=== PATIENT | female | born 1960 | race Hispanic/Latino ===

== ENCOUNTER 2017-03-13 09:34 | Day surgery (SDC) | payer OTHER ==
[2016-05-27 10:29] VITALS: BMI 32.3
[2017-03-13] MEDS ORDERED: Lidocaine 2% Inj (20ml) ONE (12:48)
[2017-03-13] MEDS ORDERED: Propofol 10 mg/ml Inj (20 ML) ONE ×3 (12:48→13:31)
[2017-03-13] MEDS ORDERED: Sodium Chloride 0.9% 1,000 ML IV SCH (14:00)
[2017-03-13 14:06] VITALS: O2SAT 98
[2017-03-13 14:29] VITALS: RESP 16
[2017-03-13 14:48] VITALS: BP 113/64; PULSE 80; TEMP 97.9
[2017-03-13] MEDS ORDERED: Midazolam 2 MG/2 ML VIAL ONE ×2 (16:24→16:51)
[2017-03-13] MEDS ORDERED: Iohexol 350mgl/ml 50 ML ONE (16:39)
== END 2017-03-13 15:19 | disposition home or self-care (01) ==
LOC: ENDO 09:34
PROVIDERS: ATTEND Internal Medicine Gastroenterology
DX: K59.09 Other constipation (principal); K57.30 Diverticulosis of large intestine without perforation or abscess without bleeding; K56.2 Volvulus; K29.50 Unspecified chronic gastritis without bleeding; K31.7 Polyp of stomach and duodenum; K29.80 Duodenitis without bleeding; K21.9 Gastro-esophageal reflux disease without esophagitis; K62.1 Rectal polyp; K64.8 Other hemorrhoids